=== PATIENT | female | born 1950 | race African-American/Black ===

== ENCOUNTER 2021-02-28 14:23 | Inpatient (IN) | payer MEDICARE, MEDICAID ==
[~2021-02-28] VITALS: Ht 170.2 cm; Wt 65.9 kg
[~2021-02-28 14:23] MED LIST: APIX5TAB MT; ATEN50TA PO; LOSA50TA41 PO
[2021-02-28 15:42] LABS: BASOPHILS % 0.6 % (0.0-2.0); EOSINOPHILS % 0.9 % (0.0-5.0); HEMATOCRIT. 33.2 % (36.0-48.0); HEMOGLOBIN. 11.3 g/dL (12.0-16.0); LYMPHOCYTES % 47.7 % (20.0-50.0); MEAN CORPUSCULAR HEMOGLOBIN 33.9 pg (28.0-32.0); MEAN CORPUSCULAR VOLUME 99.5 fL (81.0-99.0); MEAN PLATELET VOLUME 9.6 fl (7.4-10.4); MONOCYTES % 11.9 % (2.0-8.0); NEUTROPHILS % 38.9 % (40.0-76.0); PLATELET 133 x1000/uL (130-400); RED BLOOD CELL COUNT 3.33 mill/uL (4.2-5.4); RED CELL DISTRIBUTION WIDTH 12.8 % (11.6-14.6)
[2021-02-28 15:47] LABS: CHLORIDE 108 mEq/L (98-107)
[2021-02-28 15:50] LABS: INR 1.2
[2021-02-28 15:51] LABS: ETHANOL BLOOD 67 mg/dL
[2021-02-28 15:53] LABS: LDL CHOLESTEROL 51 mg/dL (5-100)
[2021-02-28 16:28] LABS: CLARITY URINE CLEAR (CLEAR); COLOR URINE YELLOW (YELLOW); KETONES URINE NEGATIVE (NEGATIVE); LEUKOCYTE ESTERASE URINE NEGATIVE (NEGATIVE); NITRITE URINE POSITIVE (NEGATIVE); OCCULT BLOOD URINE NEGATIVE (NEGATIVE); PH URINE 5.5 (4.5-8.0); PROTEIN URINE NEGATIVE (NEGATIVE); SPECIFIC GRAVITY URINE 1.042 (1.005-1.030); UROBILINOGEN URINE 0.2 E.U./dL (0.2-1.0)
[2021-02-28] MEDS ORDERED: LACTATED RINGERS 1,000 ML IV SCH (16:30)
[2021-02-28 16:43] LABS: BG BASE EXCESS -6.9 mmol/L (-2.0-2.0); BG CARBOXYHEMOGLOBIN 1.6 % (0.5-1.5); BG DEOXYHEMOGLOBIN 3.9 % (0.0-5.0); BG FRACTION INSPIRED OXYGEN 21; BG HCO3 ACT 16.6 mmol/L (22.0-26.0); BG METHEMOGLOBIN 0.1 % (0.0-1.5); BG OXYHEMOGLOBIN 94.4 % (94.0-97.0); BG PCO2 27.7 mmHg (35.0-45.0); BG PH 7.396 (7.350-7.450); BG PO2 82.3 mmHg (75.0-100.0); BG SAMPLE SITE RIGHT RADIAL; BG TOTAL HEMOGLOBIN 12.2 g/dL (12.0-18.0); BG VENT MODE ROOM AIR
[2021-02-28 16:45] LABS: *AMPHETAMINES SCREEN URINE NEGATIVE (NEGATIVE); *BARBITURATES SCREEN URINE NEGATIVE (NEGATIVE)
[2021-02-28 16:46] LABS: *BENZODIAZEPINES SCREEN URINE NEGATIVE (NEGATIVE); *COCAINE SCREEN URINE NEGATIVE (NEGATIVE); CANNABINOID URINE SCREEN NEGATIVE (NEGATIVE); METHADONE URINE SCREEN NEGATIVE (NEGATIVE); OPIATES URINE SCREEN NEGATIVE (NEGATIVE); PHENCYCLIDINE URINE SCREEN NEGATIVE (NEGATIVE)
[2021-02-28] MEDS ORDERED: IOHEXOL-350 100 ML BOTTLE ONE (19:33)
[2021-02-28] MEDS ORDERED: ZOLPIDEM TARTRATE 5MG TABLET PO PRN (20:15)
[2021-02-28] MEDS ORDERED: ACETAMINOPHEN 325MG TABLET PO PRN ×2 (20:15)
[2021-02-28] MEDS ORDERED: ONDANSETRON HCL 4MG/2ML INJ IV PRN (20:15)
[2021-02-28] MEDS ORDERED: KETOROLAC 15MG/ML VIAL IV PRN (20:15)
[2021-02-28] MEDS ORDERED: GUAIFENESIN 200MG/10ML SUGAR FREE UDC PO PRN (20:15)
[2021-02-28] MEDS ORDERED: NITROGLYCERIN 0.4MG TABLET SL SL PRN (20:15)
[2021-02-28] MEDS ORDERED: MAGNESIUM/ALUMINUM HYDROXIDE/SIMETHICONE 30ML UDC PO PRN (20:15)
[2021-02-28] MEDS ORDERED: IPRATROPIUM/ALBUTEROL 0.5-3(2.5)MG/3ML NEB NEB PRN (20:15)
[2021-02-28] MEDS ORDERED: DOCUSATE SODIUM 100MG CAPSULE PO PRN (20:15)
[2021-02-28] MEDS: CLONIDINE 0.1MG TABLET PO PRN (20:33)
[2021-02-28 20:50] LABS: T4 FREE 1.07 ng/dL (0.76-1.46)
[2021-02-28 20:59] LABS: FOLIC ACID (FOLATE) SERUM 14.2 ng/mL (>5.38)
[2021-02-28] MEDS ORDERED: LEVOFLOXACIN 500MG PREMIX 100 ML IV SCH (21:00)
[2021-02-28 22:00] VITALS: BP 169/64
[2021-02-28] MEDS ORDERED: CEFTRIAXONE 1 G PREMIX 50 ML IV SCH (22:00)
[2021-02-28] MEDS: ASCORBIC ACID 500 MG TABLET PO SCH (22:29)
[2021-02-28] MEDS: LOSARTAN POTASSIUM 50 MG TABLET PO SCH (22:29)
[2021-02-28] MEDS: FAMOTIDINE 20MG TABLET PO SCH (22:29)
[2021-02-28] MEDS ORDERED: ATOR20TA65 MT (23:07)
[2021-02-28] MEDS ORDERED: AMLO5TAB88 PO (23:07)
[2021-03-01] VITALS (10 sets, daily range): BP systolic 93–167; BP diastolic 57–80
[2021-03-01] MEDS: CEFTRIAXONE 1,000 MG in DEXTROSE 5% WATER 50 ML IV SCH (01:04)
[2021-03-01 01:45] LABS: CREATINE KINASE MB FRACTION 1.5 ng/mL (0.5-3.6)
[2021-03-01] MEDS: LEVOFLOXACIN 500MG PREMIX 100 ML IV SCH (02:08)
[2021-03-01] MEDS: APIXABAN 5 MG TABLET PO SCH ×2 (05:45→17:10)
[2021-03-01] MEDS: LOSARTAN POTASSIUM 50 MG TABLET PO SCH ×2 (08:05→10:37)
[2021-03-01] MEDS: ZINC SULFATE 220 MG ( 50 ) CAPSULE PO SCH (08:06)
[2021-03-01] MEDS: CHOLECALCIFEROL (D3) 1000 UNIT TABLET PO SCH (08:06)
[2021-03-01] MEDS: ASCORBIC ACID 500 MG TABLET PO SCH ×2 (08:06→20:31)
[2021-03-01] MEDS: FAMOTIDINE 20MG TABLET PO SCH ×2 (08:06→20:31)
[2021-03-01] MEDS: ASPIRIN 81MG EC TABLET PO SCH (08:06)
[2021-03-01 13:14] LABS: BASOPHILS % 0.9 % (0.0-2.0); EOSINOPHILS % 0.9 % (0.0-5.0); HEMATOCRIT. 36.5 % (36.0-48.0); HEMOGLOBIN. 12.1 g/dL (12.0-16.0); LYMPHOCYTES % 34.5 % (20.0-50.0); MEAN CORPUSCULAR HEMOGLOBIN 33.2 pg (28.0-32.0); MEAN PLATELET VOLUME 10.9 fl (7.4-10.4); NEUTROPHILS % 50.7 % (40.0-76.0); PLATELET 135 x1000/uL (130-400); RED BLOOD CELL COUNT 3.65 mill/uL (4.2-5.4); RED CELL DISTRIBUTION WIDTH 12.8 % (11.6-14.6)
[2021-03-01 13:17] LABS: CHLORIDE 107 mEq/L (98-107)
[2021-03-01 13:25] LABS: CREATINE KINASE 145 IU/L (26-192)
[2021-03-01] MEDS ORDERED: CEFTRIAXONE 1,000 MG in DEXTROSE 5% WATER 50 ML IV SCH (23:00)
[2021-03-02] VITALS (10 sets, daily range): BP systolic 104–149; BP diastolic 49–86
[2021-03-02] MEDS: APIXABAN 5 MG TABLET PO SCH ×2 (05:29→18:00)
[2021-03-02] MEDS: CHOLECALCIFEROL (D3) 1000 UNIT TABLET PO SCH (09:37)
[2021-03-02] MEDS: ZINC SULFATE 220 MG ( 50 ) CAPSULE PO SCH (09:37)
[2021-03-02] MEDS: ASPIRIN 81MG EC TABLET PO SCH (09:37)
[2021-03-02] MEDS: ASCORBIC ACID 500 MG TABLET PO SCH ×2 (09:37→20:59)
[2021-03-02] MEDS: FAMOTIDINE 20MG TABLET PO SCH ×2 (09:37→20:58)
[2021-03-02] MEDS: LOSARTAN POTASSIUM 50 MG TABLET PO SCH (09:38)
[2021-03-02] MEDS: CEFTRIAXONE 1,000 MG in DEXTROSE 5% WATER 50 ML IV SCH (09:38)
[2021-03-02] MEDS: LEVOFLOXACIN 500MG PREMIX 100 ML IV SCH (09:38)
[2021-03-02 22:16] LABS: BASOPHILS % 0.7 % (0.0-2.0); EOSINOPHILS % 0.8 % (0.0-5.0); HEMATOCRIT. 38.2 % (36.0-48.0); HEMOGLOBIN. 13.1 g/dL (12.0-16.0); LYMPHOCYTES % 43.2 % (20.0-50.0); MEAN PLATELET VOLUME 11.9 fl (7.4-10.4); MONOCYTES % 10.8 % (2.0-8.0); NEUTROPHILS % 44.5 % (40.0-76.0); PLATELET 145 x1000/uL (130-400); RED BLOOD CELL COUNT 3.86 mill/uL (4.2-5.4); RED CELL DISTRIBUTION WIDTH 12.7 % (11.6-14.6)
[2021-03-02 22:21] LABS: CHLORIDE 109 mEq/L (98-107)
[2021-03-02 22:27] LABS: PHOSPHORUS 3.5 mg/dL (2.5-4.9)
[2021-03-03] VITALS (9 sets, daily range): BP systolic 127–161; BP diastolic 61–80
[2021-03-03] MEDS: APIXABAN 5 MG TABLET PO SCH ×2 (05:16→17:43)
[2021-03-03] MEDS: CHOLECALCIFEROL (D3) 1000 UNIT TABLET PO SCH (09:13)
[2021-03-03] MEDS: CEFTRIAXONE 1,000 MG in DEXTROSE 5% WATER 50 ML IV SCH (09:13)
[2021-03-03] MEDS: ASCORBIC ACID 500 MG TABLET PO SCH ×3 (09:13→20:32)
[2021-03-03] MEDS: FAMOTIDINE 20MG TABLET PO SCH ×2 (09:13→20:28)
[2021-03-03] MEDS: LEVOFLOXACIN 500MG PREMIX 100 ML IV SCH (09:13)
[2021-03-03] MEDS: ZINC SULFATE 220 MG ( 50 ) CAPSULE PO SCH (09:13)
[2021-03-03] MEDS: ASPIRIN 81MG EC TABLET PO SCH (09:13)
[2021-03-03] MEDS: LOSARTAN POTASSIUM 50 MG TABLET PO SCH (09:14)
[2021-03-03] MEDS: CLONIDINE 0.1MG TABLET PO PRN (20:28)
[2021-03-04 04:00] VITALS: BP 154/86
[2021-03-04] MEDS: APIXABAN 5 MG TABLET PO SCH (06:33)
[2021-03-04] MEDS: ASCORBIC ACID 500 MG TABLET PO SCH (08:17)
[2021-03-04] MEDS: LOSARTAN POTASSIUM 50 MG TABLET PO SCH (08:17)
[2021-03-04] MEDS: ASPIRIN 81MG EC TABLET PO SCH (08:17)
[2021-03-04] MEDS: ZINC SULFATE 220 MG ( 50 ) CAPSULE PO SCH (08:17)
[2021-03-04] MEDS: CEFTRIAXONE 1,000 MG in DEXTROSE 5% WATER 50 ML IV SCH (08:17)
[2021-03-04] MEDS: FAMOTIDINE 20MG TABLET PO SCH (08:17)
[2021-03-04] MEDS: CHOLECALCIFEROL (D3) 1000 UNIT TABLET PO SCH (08:17)
[2021-03-04 08:25] VITALS: BP 127/58
[2021-03-04] MEDS: LEVOFLOXACIN 500MG PREMIX 100 ML IV SCH (09:29)
[2021-03-04 09:31] VITALS: BP 127/69
[2021-03-04] MEDS ORDERED: INFLUENZA VACCINE 05/PF 0.5 ML VIAL IM ONE (10:00)
== END 2021-03-04 10:19 | disposition home health service (06) | DRG 720 ==
LOC: ER 14:29 → 3WST 17:26 → EDBEDREQ 17:34 → EDBEDREQTM 17:34 → ENRESERV 19:50 → SUPCPDRO 20:11
PROVIDERS: ADMIT Internal Medicine; ATTEND Internal Medicine
DX: A41.9 Sepsis, unspecified organism (principal); I21.4 Non-ST elevation (NSTEMI) myocardial infarction; G92 Toxic encephalopathy; I48.91 Unspecified atrial fibrillation; D63.8 Anemia in other chronic diseases classified elsewhere; F10.10 Alcohol abuse, uncomplicated; E78.00 Pure hypercholesterolemia, unspecified; R47.01 Aphasia; N39.0 Urinary tract infection, site not specified; F17.210 Nicotine dependence, cigarettes, uncomplicated; I10 Essential (primary) hypertension; J44.9 Chronic obstructive pulmonary disease, unspecified; R65.20 Severe sepsis without septic shock; Z86.73 Personal history of transient ischemic attack (TIA), and cerebral infarction without residual deficits
CPT/HCPCS: 36415; 36600; 70496; 70498; 71045; 80048; 80053; 80061; 80305; 80320; 81003; 82375; 82550; 82553; 82607; 82746; 82805; 82962; 83036; 83540; 83550; 83605; 83721; 83735; 83880; 84100; 84439; 84443; 84484; 85025; 90686; 93005; 93306; 93970; 97116; 97162; 99291; J0696; J1956; J7060; Q9967; G0480

== ENCOUNTER 2021-03-05 18:07 | Emergency (ER) | payer MEDICARE, MEDICAID ==
[~2021-03-05] VITALS: Ht 172.7 cm; Wt 64.0 kg
[~2021-03-05 18:07] MED LIST changes: +AMLO5TAB88 PO; +ATOR20TA65 MT
[2021-03-05 23:36] VITALS: BP 130/78
== END 2021-03-05 23:36 | disposition left against medical advice (07) ==
LOC: ER 18:07
DX: I25.2 Old myocardial infarction (principal); I10 Essential (primary) hypertension; I48.91 Unspecified atrial fibrillation; J44.1 Chronic obstructive pulmonary disease with (acute) exacerbation; Z86.73 Personal history of transient ischemic attack (TIA), and cerebral infarction without residual deficits; Z87.891 Personal history of nicotine dependence; Z86.718 Personal history of other venous thrombosis and embolism
CPT/HCPCS: 99281

== ENCOUNTER 2021-03-07 13:03 | Inpatient (IN) | payer MEDICARE, MEDICAID ==
[~2021-03-07] VITALS: Ht 172.7 cm; Wt 61.2 kg
[2021-03-07 14:34] LABS: BASOPHILS % 0.4 % (0.0-2.0); EOSINOPHILS % 3.1 % (0.0-5.0); HEMATOCRIT. 37.5 % (36.0-48.0); HEMOGLOBIN. 12.8 g/dL (12.0-16.0); LYMPHOCYTES % 45.7 % (20.0-50.0); MEAN CORPUSCULAR HEMOGLOBIN 33.6 pg (28.0-32.0); MEAN CORPUSCULAR VOLUME 98.7 fL (81.0-99.0); MEAN PLATELET VOLUME 10.2 fl (7.4-10.4); MONOCYTES % 11.6 % (2.0-8.0); NEUTROPHILS % 39.2 % (40.0-76.0); PLATELET 176 x1000/uL (130-400); RED CELL DISTRIBUTION WIDTH 12.6 % (11.6-14.6)
[2021-03-07 14:41] LABS: CHLORIDE 109 mEq/L (98-107)
[2021-03-07 17:04] LABS: CLARITY URINE CLEAR (CLEAR); COLOR URINE YELLOW (YELLOW); KETONES URINE NEGATIVE (NEGATIVE); LEUKOCYTE ESTERASE URINE 1+ (NEGATIVE); NITRITE URINE NEGATIVE (NEGATIVE); OCCULT BLOOD URINE NEGATIVE (NEGATIVE); PROTEIN URINE NEGATIVE (NEGATIVE); SPECIFIC GRAVITY URINE 1.023 (1.005-1.030); UROBILINOGEN URINE 0.2 E.U./dL (0.2-1.0)
[2021-03-07 17:41] LABS: *BARBITURATES SCREEN URINE NEGATIVE (NEGATIVE); *BENZODIAZEPINES SCREEN URINE NEGATIVE (NEGATIVE); *COCAINE SCREEN URINE NEGATIVE (NEGATIVE)
[2021-03-07 17:43] LABS: *AMPHETAMINES SCREEN URINE NEGATIVE (NEGATIVE); CANNABINOID URINE SCREEN NEGATIVE (NEGATIVE); METHADONE URINE SCREEN NEGATIVE (NEGATIVE); OPIATES URINE SCREEN NEGATIVE (NEGATIVE); PHENCYCLIDINE URINE SCREEN NEGATIVE (NEGATIVE)
[2021-03-07] MEDS ORDERED: SODIUM CHLORIDE 0.9% 1,000 ML IV ONE (18:00)
[2021-03-07] MEDS ORDERED: SODIUM CHLORIDE 0.9% 500 ML IV ONE (18:00)
[2021-03-07] MEDS ORDERED: IPRATROPIUM/ALBUTEROL 0.5-3(2.5)MG/3ML NEB NEB PRN (19:30)
[2021-03-07] MEDS ORDERED: NITROGLYCERIN 0.4MG TABLET SL SL PRN (19:30)
[2021-03-07] MEDS ORDERED: HYDRALAZINE 20MG/ML VIAL IV PRN (19:30)
[2021-03-07] MEDS ORDERED: ATROPINE SULFATE 1MG/ML VIAL IV PRN (19:30)
[2021-03-07] MEDS ORDERED: KETOROLAC 15MG/ML VIAL IV PRN (19:30)
[2021-03-07] MEDS ORDERED: MAGNESIUM/ALUMINUM HYDROXIDE/SIMETHICONE 30ML UDC PO PRN (19:30)
[2021-03-07] MEDS ORDERED: ZOLPIDEM TARTRATE 5MG TABLET PO PRN (19:30)
[2021-03-07] MEDS ORDERED: DOCUSATE SODIUM 100MG CAPSULE PO PRN (19:30)
[2021-03-07] MEDS ORDERED: GUAIFENESIN 200MG/10ML SUGAR FREE UDC PO PRN (19:30)
[2021-03-07] MEDS ORDERED: ONDANSETRON HCL 4MG/2ML INJ IV PRN (19:30)
[2021-03-07] MEDS ORDERED: ACETAMINOPHEN 325MG TABLET PO PRN ×2 (19:30)
[2021-03-07] MEDS ORDERED: CEFTRIAXONE 1 G PREMIX 50 ML IV SCH (21:00)
[2021-03-07] MEDS: FAMOTIDINE 20MG TABLET PO SCH (21:22)
[2021-03-07] MEDS: ASCORBIC ACID 500 MG TABLET PO SCH (21:22)
[2021-03-08] VITALS (9 sets, daily range): BP systolic 139–205; BP diastolic 49–71
[2021-03-08] MEDS: APIXABAN 5 MG TABLET PO SCH ×2 (06:26→17:37)
[2021-03-08] MEDS: ASPIRIN 81MG EC TABLET PO SCH (08:47)
[2021-03-08] MEDS: CHOLECALCIFEROL (D3) 1000 UNIT TABLET PO SCH (08:47)
[2021-03-08] MEDS: LOSARTAN POTASSIUM 50 MG TABLET PO SCH (08:47)
[2021-03-08] MEDS: ASCORBIC ACID 500 MG TABLET PO SCH ×2 (08:48→20:38)
[2021-03-08] MEDS: FAMOTIDINE 20MG TABLET PO SCH ×2 (08:48→20:42)
[2021-03-08] MEDS: ZINC SULFATE 220 MG ( 50 ) CAPSULE PO SCH (08:48)
[2021-03-08] MEDS ORDERED: AMLODIPINE 5MG TABLET PO NR (11:30)
[2021-03-08 20:32] LABS: BASOPHILS % 0.1 % (0.0-2.0); EOSINOPHILS % 3.2 % (0.0-5.0); HEMATOCRIT. 38.1 % (36.0-48.0); LYMPHOCYTES % 42.2 % (20.0-50.0); MEAN CORPUSCULAR VOLUME 99.1 fL (81.0-99.0); MONOCYTES % 10.2 % (2.0-8.0); NEUTROPHILS % 44.3 % (40.0-76.0); PLATELET 162 x1000/uL (130-400); RED BLOOD CELL COUNT 3.84 mill/uL (4.2-5.4); RED CELL DISTRIBUTION WIDTH 12.5 % (11.6-14.6)
[2021-03-08] MEDS: AMLODIPINE 5MG TABLET PO SCH (20:42)
[2021-03-08] MEDS: CEFTRIAXONE 1,000 MG in DEXTROSE 5% WATER 50 ML IV SCH (20:43)
[2021-03-08 20:50] LABS: CHLORIDE 111 mEq/L (98-107)
[2021-03-08 20:57] LABS: PHOSPHORUS 4.1 mg/dL (2.5-4.9)
[2021-03-08 21:00] LABS: CREATINE KINASE 136 IU/L (26-192)
[2021-03-09] VITALS (8 sets, daily range): BP systolic 128–146; BP diastolic 45–79
[2021-03-09] MEDS: APIXABAN 5 MG TABLET PO SCH ×2 (05:23→17:31)
[2021-03-09] MEDS: LOSARTAN POTASSIUM 50 MG TABLET PO SCH (08:44)
[2021-03-09] MEDS: ASCORBIC ACID 500 MG TABLET PO SCH ×2 (08:44→20:52)
[2021-03-09] MEDS: FAMOTIDINE 20MG TABLET PO SCH ×2 (08:44→20:55)
[2021-03-09] MEDS: CHOLECALCIFEROL (D3) 1000 UNIT TABLET PO SCH (08:44)
[2021-03-09] MEDS: ZINC SULFATE 220 MG ( 50 ) CAPSULE PO SCH (08:44)
[2021-03-09] MEDS: ASPIRIN 81MG EC TABLET PO SCH (08:44)
[2021-03-09] MEDS: AMLODIPINE 5MG TABLET PO SCH ×2 (08:45→20:55)
[2021-03-09] MEDS: CEFTRIAXONE 1,000 MG in DEXTROSE 5% WATER 50 ML IV SCH (20:52)
[2021-03-10] MEDS: APIXABAN 5 MG TABLET PO SCH (05:12)
[2021-03-10] MEDS: AMLODIPINE 5MG TABLET PO SCH ×2 (09:00→21:00)
[2021-03-10] MEDS: LOSARTAN POTASSIUM 50 MG TABLET PO SCH (09:00)
[2021-03-10] MEDS: CHOLECALCIFEROL (D3) 1000 UNIT TABLET PO SCH (09:28)
[2021-03-10] MEDS: ASPIRIN 81MG EC TABLET PO SCH (09:28)
[2021-03-10] MEDS: FAMOTIDINE 20MG TABLET PO SCH ×2 (09:28→20:31)
[2021-03-10] MEDS: ZINC SULFATE 220 MG ( 50 ) CAPSULE PO SCH (09:28)
[2021-03-10] MEDS: ASCORBIC ACID 500 MG TABLET PO SCH ×2 (09:28→20:31)
[2021-03-10 20:31] VITALS: BP 138/72
[2021-03-10] MEDS: CEFTRIAXONE 1,000 MG in DEXTROSE 5% WATER 50 ML IV SCH (20:31)
[2021-03-11 04:00] VITALS: BP 144/63
[2021-03-11] MEDS: AMLODIPINE 5MG TABLET PO SCH ×2 (09:00→20:43)
[2021-03-11] MEDS: LOSARTAN POTASSIUM 50 MG TABLET PO SCH (09:00)
[2021-03-11] MEDS: ZINC SULFATE 220 MG ( 50 ) CAPSULE PO SCH (09:29)
[2021-03-11] MEDS: ASPIRIN 81MG EC TABLET PO SCH (09:29)
[2021-03-11] MEDS: FAMOTIDINE 20MG TABLET PO SCH ×2 (09:29→20:37)
[2021-03-11] MEDS: ASCORBIC ACID 500 MG TABLET PO SCH ×2 (09:29→20:37)
[2021-03-11] MEDS: CHOLECALCIFEROL (D3) 1000 UNIT TABLET PO SCH (09:29)
[2021-03-11] MEDS: ENOXAPARIN 40MG/0.4ML SYR SUBCUT SCH (09:30)
[2021-03-11 17:30] LABS: BASOPHILS % 1.5 % (0.0-2.0); EOSINOPHILS % 2.4 % (0.0-5.0); HEMATOCRIT. 37.1 % (36.0-48.0); HEMOGLOBIN. 12.8 g/dL (12.0-16.0); MEAN CORPUSCULAR HEMOGLOBIN 33.7 pg (28.0-32.0); MEAN PLATELET VOLUME 10.8 fl (7.4-10.4); MONOCYTES % 10.5 % (2.0-8.0); NEUTROPHILS % 40.6 % (40.0-76.0); PLATELET 179 x1000/uL (130-400); RED BLOOD CELL COUNT 3.79 mill/uL (4.2-5.4); RED CELL DISTRIBUTION WIDTH 12.3 % (11.6-14.6)
[2021-03-11 17:43] LABS: CHLORIDE 108 mEq/L (98-107)
[2021-03-11] MEDS: CEFTRIAXONE 1,000 MG in DEXTROSE 5% WATER 50 ML IV SCH (20:37)
[2021-03-12 08:00] VITALS: BP 153/93
[2021-03-12] MEDS: ASPIRIN 81MG EC TABLET PO SCH (09:00)
[2021-03-12] MEDS: FAMOTIDINE 20MG TABLET PO SCH ×2 (09:00→20:15)
[2021-03-12] MEDS: ENOXAPARIN 40MG/0.4ML SYR SUBCUT SCH (09:00)
[2021-03-12 11:00] VITALS: BP 107/69
[2021-03-12] MEDS: CHOLECALCIFEROL (D3) 1000 UNIT TABLET PO SCH (11:14)
[2021-03-12] MEDS: ASCORBIC ACID 500 MG TABLET PO SCH ×2 (11:14→20:15)
[2021-03-12] MEDS: ZINC SULFATE 220 MG ( 50 ) CAPSULE PO SCH (11:15)
[2021-03-12] MEDS: LOSARTAN POTASSIUM 50 MG TABLET PO SCH (11:15)
[2021-03-12] MEDS: AMLODIPINE 5MG TABLET PO SCH ×2 (11:17→20:15)
[2021-03-12 12:00] VITALS: BP 139/85
[2021-03-12 16:00] VITALS: BP 154/80
[2021-03-12 20:00] VITALS: BP 132/65
[2021-03-12] MEDS: CEFTRIAXONE 1,000 MG in DEXTROSE 5% WATER 50 ML IV SCH (20:08)
[2021-03-13 08:00] VITALS: BP 150/91
[2021-03-13] MEDS: AMLODIPINE 5MG TABLET PO SCH ×2 (09:00→22:01)
[2021-03-13 10:00] VITALS: BP 158/59
[2021-03-13] MEDS: ASCORBIC ACID 500 MG TABLET PO SCH ×2 (10:04→22:00)
[2021-03-13] MEDS: ZINC SULFATE 220 MG ( 50 ) CAPSULE PO SCH (10:04)
[2021-03-13] MEDS: ENOXAPARIN 40MG/0.4ML SYR SUBCUT SCH (10:04)
[2021-03-13] MEDS: LOSARTAN POTASSIUM 50 MG TABLET PO SCH (10:04)
[2021-03-13] MEDS: CHOLECALCIFEROL (D3) 1000 UNIT TABLET PO SCH (10:04)
[2021-03-13] MEDS: ASPIRIN 81MG EC TABLET PO SCH (10:06)
[2021-03-13] MEDS: FAMOTIDINE 20MG TABLET PO SCH ×2 (10:07→22:01)
[2021-03-13] MEDS ORDERED: ATROPINE SULFATE 1MG/ML VIAL IV PRN (10:30)
[2021-03-13 20:00] VITALS: BP 124/84
[2021-03-13 22:00] VITALS: BP 116/59
[2021-03-14 06:00] VITALS: BP 133/66
[2021-03-14 09:24] VITALS: BP 120/52
[2021-03-14] MEDS: ASCORBIC ACID 500 MG TABLET PO SCH ×2 (09:58→21:11)
[2021-03-14] MEDS: CHOLECALCIFEROL (D3) 1000 UNIT TABLET PO SCH (09:59)
[2021-03-14] MEDS: ASPIRIN 81MG EC TABLET PO SCH (09:59)
[2021-03-14] MEDS: LOSARTAN POTASSIUM 50 MG TABLET PO SCH (09:59)
[2021-03-14] MEDS: ZINC SULFATE 220 MG ( 50 ) CAPSULE PO SCH (09:59)
[2021-03-14] MEDS: FAMOTIDINE 20MG TABLET PO SCH ×2 (09:59→21:11)
[2021-03-14] MEDS: AMLODIPINE 5MG TABLET PO SCH ×2 (10:08→21:11)
[2021-03-14] MEDS: ENOXAPARIN 40MG/0.4ML SYR SUBCUT SCH (10:09)
[2021-03-14 20:00] VITALS: BP 175/72
[2021-03-15 08:00] VITALS: BP 157/78
[2021-03-15] MEDS: LOSARTAN POTASSIUM 50 MG TABLET PO SCH (08:26)
[2021-03-15] MEDS: ZINC SULFATE 220 MG ( 50 ) CAPSULE PO SCH (08:27)
[2021-03-15] MEDS: CHOLECALCIFEROL (D3) 1000 UNIT TABLET PO SCH (08:27)
[2021-03-15] MEDS: ASCORBIC ACID 500 MG TABLET PO SCH (08:27)
[2021-03-15] MEDS: FAMOTIDINE 20MG TABLET PO SCH (08:27)
[2021-03-15] MEDS: ASPIRIN 81MG EC TABLET PO SCH (08:27)
[2021-03-15] MEDS: AMLODIPINE 5MG TABLET PO SCH (08:27)
[2021-03-15] MEDS: ENOXAPARIN 40MG/0.4ML SYR SUBCUT SCH (09:00)
[2021-03-15 11:22] VITALS: BP 136/77
[2021-03-15 12:57] VITALS: BP 136/77
== END 2021-03-15 15:00 | disposition home or self-care (01) | DRG 52 ==
LOC: ER 13:33 → MICUSO 17:59 → 5EST 03-08 07:23
PROVIDERS: ADMIT Internal Medicine; ATTEND Internal Medicine
DX: G92 Toxic encephalopathy (principal); I48.21 Permanent atrial fibrillation; I49.5 Sick sinus syndrome; E86.0 Dehydration; E78.00 Pure hypercholesterolemia, unspecified; F17.210 Nicotine dependence, cigarettes, uncomplicated; E78.5 Hyperlipidemia, unspecified; J44.9 Chronic obstructive pulmonary disease, unspecified; I10 Essential (primary) hypertension; I34.0 Nonrheumatic mitral (valve) insufficiency; I34.2 Nonrheumatic mitral (valve) stenosis; N39.0 Urinary tract infection, site not specified; I25.10 Atherosclerotic heart disease of native coronary artery without angina pectoris; Z20.822 Contact with and (suspected) exposure to COVID-19; I25.2 Old myocardial infarction; Z79.01 Long term (current) use of anticoagulants; Z79.899 Other long term (current) drug therapy; Z79.1 Long term (current) use of non-steroidal anti-inflammatories (NSAID); Z86.718 Personal history of other venous thrombosis and embolism; Z86.73 Personal history of transient ischemic attack (TIA), and cerebral infarction without residual deficits; R79.89 Other specified abnormal findings of blood chemistry
CPT/HCPCS: 36415; 71045; 80048; 80053; 80305; 80320; 81003; 82550; 82553; 83605; 83735; 83880; 84100; 84443; 84484; 85025; 87426; 93005; 93970; 97162; 97166; 99285; C1893; J0360; J0696; J1650; J7030; J7040; J7060; G0480

== ENCOUNTER 2025-09-27 21:40 | Inpatient (IN) | payer MEDICARE, MEDICAID ==
[~2025-09-27] VITALS: Ht 170.2 cm; Wt 63.5 kg
[~2025-09-27 21:40] MED LIST changes: -ATEN50TA PO
[2025-09-27 21:44] VITALS: O2SAT 99
[2025-09-27] MEDS: SODIUM CHLORIDE 0.9% 1,000 ML IV ONE (22:30)
[2025-09-28 00:47] LABS: BASOPHILS % 1.3 % (0.0-2.0); EOSINOPHILS % 0.3 % (0.0-5.0); HEMATOCRIT. 34.0 % (36.0-48.0); HEMOGLOBIN. 11.0 g/dL (12.0-16.0); LYMPHOCYTES % 44.9 % (20.0-50.0); MEAN PLATELET VOLUME 10.3 fl (7.4-10.4); MONOCYTES % 8.2 % (2.0-8.0); NEUTROPHILS % 45.3 % (40.0-76.0); PLATELET 103 x1000/uL (130-400); RED BLOOD CELL COUNT 3.62 mill/uL (4.2-5.4); RED CELL DISTRIBUTION WIDTH 15.4 % (11.6-14.6)
[2025-09-28 01:01] LABS: CREATININE 1.2 mg/dL (0.6-1.0); UREA NITROGEN BLOOD 16 mg/dL (9-23)
[2025-09-28 01:03] LABS: ASPARTATE AMINOTRANSFERASE 42 IU/L (<34); BILIRUBIN DIRECT 0.4 mg/dL (<=3.0)
[2025-09-28 01:04] LABS: BILIRUBIN TOTAL 0.8 mg/dL (0.1-1.0)
[2025-09-28 01:12] LABS: PROTEIN TOTAL 8.2 g/dL (6.0-8.3)
[2025-09-28 01:25] LABS: TROPONIN I HIGH SENSITIVITY 93 ng/L (3.0-34)
[2025-09-28 02:45] LABS: INFLUENZA TYPE A Presumptive Negative (Pres. Neg.)
[2025-09-28] MEDS: ENOXAPARIN 60MG/0.6ML SYR SUBCUT ONE (02:45)
[2025-09-28 02:46] LABS: INFLUENZA TYPE B Presumptive Negative (Pres. Neg.)
[2025-09-28] MEDS ORDERED: MAGNESIUM/ALUMINUM HYDROXIDE/SIMETHICONE 30ML UDC PO PRN (05:30)
[2025-09-28] MEDS ORDERED: ACETAMINOPHEN 325MG TABLET PO PRN ×2 (05:30)
[2025-09-28] MEDS ORDERED: GUAIFENESIN 200MG/10ML SUGAR FREE UDC PO PRN (05:30)
[2025-09-28] MEDS ORDERED: IPRATROPIUM/ALBUTEROL 0.5-3(2.5)MG/3ML NEB HHN PRN (05:30)
[2025-09-28] MEDS ORDERED: ONDANSETRON HCL 4MG/2ML INJ IV PRN (05:30)
[2025-09-28] MEDS ORDERED: DOCUSATE SODIUM 100MG CAPSULE PO PRN (05:30)
[2025-09-28] MEDS: SODIUM CHLORIDE 0.9% 500 ML IV ONE (05:44)
[2025-09-28] MEDS: ASPIRIN 81MG TABLET PO SCH (06:41)
[2025-09-28 07:31] LABS: CREATINE KINASE MB FRACTION 1.9 ng/mL (0.5-3.6); LDL CHOLESTEROL 78 mg/dL (5-100); TRIGLYCERIDE 87 mg/dL (0-150)
[2025-09-28 07:36] LABS: FOLIC ACID (FOLATE) SERUM 13.74 ng/mL (>5.38); VITAMIN B12 SERUM 558 pg/mL (211-911)
[2025-09-28 08:00] VITALS: BP 153/108; PULSE 85; RESP 18; TEMP 36.6; O2SAT 100
[2025-09-28 08:30] VITALS: BP_SYST 148; BP_SYST 153; BP_DIAS 108; BP_DIAS 84; PULSE 85; PULSE 98; RESP 18; TEMP 36.5848; TEMP 36.7516
[2025-09-28] MEDS: PANTOPRAZOLE SODIUM 40 MG/VIAL IV SCH (08:30)
[2025-09-28] MEDS: ENOXAPARIN 60MG/0.6ML SYR SUBCUT NR (09:30)
[2025-09-28] MEDS: SODIUM CHLORIDE 0.45% 1,000 ML IV SCH (09:36)
[2025-09-28] MEDS: FUROSEMIDE 100MG/10ML VIAL IVP SCH (11:38)
[2025-09-28 12:00] VITALS: BP 148/84; PULSE 70; RESP 18; TEMP 36.7; O2SAT 99
[2025-09-28 14:23] LABS: INR 1.2
[2025-09-28 16:00] VITALS: BP 147/90; PULSE 65; RESP 18; TEMP 36.5; O2SAT 100
[2025-09-28 20:00] VITALS: BP 140/74; PULSE 68; RESP 16; TEMP 36.4; O2SAT 100
[2025-09-28] MEDS: ENOXAPARIN 80MG/0.8ML SYR SUBCUT SCH (20:56)
[2025-09-28] MEDS: ATORVASTATIN CALCIUM 40MG TABLET PO SCH (20:56)
[2025-09-28] MEDS ORDERED: IOHEXOL-350 100 ML BOTTLE ONE (23:50)
[2025-09-29] VITALS: BP 146/72; PULSE 64; RESP 18; TEMP 36; O2SAT 97
[2025-09-29 02:00] LABS: CLARITY URINE CLEAR (CLEAR); COLOR URINE YELLOW (YELLOW); GLUCOSE URINE NEGATIVE (NEGATIVE); KETONES URINE NEGATIVE (NEGATIVE); LEUKOCYTE ESTERASE URINE TRACE (NEGATIVE); NITRITE URINE NEGATIVE (NEGATIVE); OCCULT BLOOD URINE NEGATIVE (NEGATIVE); PH URINE 5.5 (4.5-8.0); PROTEIN URINE NEGATIVE (NEGATIVE); SPECIFIC GRAVITY URINE 1.018 (1.005-1.030); UROBILINOGEN URINE 0.2 E.U./dL (0.2-1.0)
[2025-09-29 04:00] VITALS: BP 142/74; PULSE 75; RESP 16; TEMP 36.2; O2SAT 95
[2025-09-29] MEDS ORDERED: SODIUM CHLORIDE 0.9% 500 ML IV ONE (05:30)
[2025-09-29 07:37] LABS: BACTERIA URINE NONE SEEN; RBC URINE 0-2 /hpf (0-2); SQUAMOUS EPITHELIAL CELL URINE FEW /lpf (RARE/1+); WBC URINE 0-2 /hpf (0-2)
[2025-09-29 08:00] VITALS: BP 149/84; PULSE 68; RESP 18; TEMP 36.3; O2SAT 99
[2025-09-29 12:00] VITALS: BP 140/74; PULSE 94; RESP 18; TEMP 36.3; O2SAT 99
[2025-09-29] MEDS: FERROUS SULFATE 325MG TABLET PO SCH (13:35)
[2025-09-29 16:00] VITALS: BP 123/76; PULSE 65; RESP 18; TEMP 36.2; O2SAT 99
[2025-09-29 20:00] VITALS: BP 138/72; PULSE 71; RESP 20; TEMP 36; O2SAT 92
[2025-09-30] VITALS: BP 129/62; PULSE 71; TEMP 36.7
[2025-09-30] MEDS: SACUBITRIL/VALSARTAN 24MG/26MG TABLET PO SCH (11:00)
[2025-09-30] MEDS: EMPAGLIFLOZIN 10MG TABLET PO SCH (11:00)
[2025-09-30] MEDS: SPIRONOLACTONE 25MG TABLET PO SCH (11:00)
[2025-09-30] MEDS ORDERED: ASPI-1160 PO (14:49)
[2025-09-30] MEDS ORDERED: SACU1TAB PO (14:49)
[2025-09-30] MEDS ORDERED: FERR-63 PO (14:49)
[2025-09-30] MEDS ORDERED: APIX5TAB MT (14:49)
[2025-09-30] MEDS ORDERED: PANT40TA51 MT (14:49)
[2025-09-30] MEDS ORDERED: COR3 PO (14:49)
[2025-09-30] MEDS ORDERED: EMPA10TA PO (14:49)
[2025-09-30] MEDS ORDERED: APIX5TAB PO (14:49)
[2025-09-30] MEDS ORDERED: LIP40 PO (14:49)
[2025-09-30] MEDS ORDERED: SPIR25TA PO (14:49)
[2025-09-30 15:01] VITALS: BP 129/64; PULSE 77; RESP 18; TEMP 97.7
[2025-09-30 16:12] VITALS: BP 129/64; PULSE 77; RESP 18; TEMP 36.5; O2SAT 98
[2025-09-30 16:17] VITALS: PULSE 77
[2025-09-30] MEDS: CARVEDILOL 3.125 MG TABLET PO SCH (16:17)
[2025-09-30] MEDS ORDERED: ENOXAPARIN 60MG/0.6ML SYR SUBCUT SCH (21:00)
[2025-09-30] MEDS ORDERED: APIXABAN 5 MG TABLET PO SCH (21:00)
== END 2025-09-30 18:12 | disposition home health service (06) | DRG 280 ==
LOC: ER 21:40 → 8WST 09-28 05:18 → EDBEDREQTM 09-28 05:19 → EDBEDREQ 09-28 05:19 → ENRESERV 09-28 07:05
PROVIDERS: ADMIT Hospitalist; ATTEND Hospitalist
DX: I11.0 Hypertensive heart disease with heart failure (principal); I50.23 Acute on chronic systolic (congestive) heart failure; I21.A1 Myocardial infarction type 2; E46 Unspecified protein-calorie malnutrition; D61.818 Other pancytopenia; I48.91 Unspecified atrial fibrillation; N17.9 Acute kidney failure, unspecified; J44.9 Chronic obstructive pulmonary disease, unspecified; Z20.822 Contact with and (suspected) exposure to COVID-19; I42.9 Cardiomyopathy, unspecified; I49.5 Sick sinus syndrome; I25.10 Atherosclerotic heart disease of native coronary artery without angina pectoris; F17.210 Nicotine dependence, cigarettes, uncomplicated; Z79.899 Other long term (current) drug therapy; Z86.73 Personal history of transient ischemic attack (TIA), and cerebral infarction without residual deficits; Z95.0 Presence of cardiac pacemaker; Z91.199 Patient's noncompliance with other medical treatment and regimen due to unspecified reason; Z68.21 Body mass index [BMI] 21.0-21.9, adult
CPT/HCPCS: 36415; 71045; 76770; 80048; 80061; 80076; 81003; 82550; 82553; 82607; 82728; 82746; 83036; 83540; 83550; 83605; 83735; 83880; 84145; 84484; 85025; 85379; 87426; 87804; 93005; 93306; 96372; 99285; A4615; J1650; J1938; J2470; J7030; Q9967